=== PATIENT | female | born 1965 | race Caucasian/White ===

== ENCOUNTER 2020-06-28 13:35 | Emergency (ER) | payer OTHER ==
[~2020-06-28] VITALS: Ht 175.3 cm; Wt 99.8 kg
--- NOTE | 2020-06-28 14:10 | NUR ---
XRAY's done at bedside, pt states she does not want any pain medications at this time.
[2020-06-28] MEDS ORDERED: ONDANSETRON 4 MG/2 ML VIAL IM ONE (14:15)
[2020-06-28] MEDS ORDERED: HYDROMORPHONE 1 MG/1 ML DISP.SYRIN IM ONE (14:15)
--- NOTE | 2020-06-28 15:45 | NUR ---
Patient discharged to home in stable condition. Written and verbal after care instructions given. Patient verbalizes understanding of instructions. Stressed follow up or return to ER for worsening s/s.
== END 2020-06-28 15:46 | disposition home or self-care (01) ==
LOC: ER 13:37
DX: S49.91XA Unspecified injury of right shoulder and upper arm, initial encounter (principal); W18.30XA Fall on same level, unspecified, initial encounter; Y92.89 Other specified places as the place of occurrence of the external cause; M25.511 Pain in right shoulder
CPT/HCPCS: 73030; 73060; 73090; 73200; A4663